=== PATIENT | male | born 1985 | race African-American/Black ===

== ENCOUNTER 2024-01-07 17:00 | Emergency (ER) | payer MEDICAID ==
[~2024-01-07] VITALS: Ht 190.5 cm; Wt 86.0 kg
[2024-01-07 17:06] VITALS: O2SAT 98
[2024-01-07 19:07] LABS: CLARITY URINE CLOUDY (CLEAR); COLOR URINE DARK YELLOW (YELLOW); GLUCOSE URINE NEGATIVE (NEGATIVE); KETONES URINE TRACE (NEGATIVE); LEUKOCYTE ESTERASE URINE 1+ (NEGATIVE); NITRITE URINE NEGATIVE (NEGATIVE); OCCULT BLOOD URINE NEGATIVE (NEGATIVE); PH URINE 5.5 (4.5-8.0); PROTEIN URINE TRACE (NEGATIVE); SPECIFIC GRAVITY URINE 1.023 (1.005-1.030)
[2024-01-07 19:41] LABS: BACTERIA URINE 2+; RBC URINE 0-2 /hpf (0-2); SQUAMOUS EPITHELIAL CELL URINE FEW /lpf (RARE/1+)
[2024-01-07 19:43] LABS: URIC ACID CRYSTALS URINE 1+ /lpf
[2024-01-07] MEDS ORDERED: SULF1TAB48 MT (20:17)
[2024-01-07 20:50] VITALS: BP 113/78; PULSE 60; RESP 19; TEMP 36.66960; O2SAT 100
== END 2024-01-07 21:08 | disposition home or self-care (01) ==
LOC: ER 17:00 → EDSEX 17:00 → ER 21:08
DX: N39.0 Urinary tract infection, site not specified (principal)
CPT/HCPCS: 81003; 99283